=== PATIENT | female | born 1965 | race Caucasian/White ===

== ENCOUNTER 2017-04-23 10:45 | Emergency (ER) | payer OTHER ==
[~2017-04-23] VITALS: Ht 154.9 cm; Wt 65.8 kg
[~2017-04-23 10:45] MED LIST: ATENOLOL25 MG PO; BIRTH CONTROL1 EAC1 PO; CLARITIN10 MG PO; LEVOTHROID0.025 MG PO; LISINOPRIL20 MG PO; NAPROSYN500 MG PO; PRILOSEC20 M1 PO; TRAMADOL HCL50 MG PO; ZITHROMAX Z PA250 MG PO
[2017-04-23] MEDS ORDERED: VITAMIN D1000 IU PO (10:54)
[2017-04-23] MEDS ORDERED: Motrin,Rufen800 MG PO (13:12)
== END 2017-04-23 13:35 | disposition home or self-care (01) ==
LOC: ED 10:45
DX: S33.5XXA Sprain of ligaments of lumbar spine, initial encounter (principal); F17.200 Nicotine dependence, unspecified, uncomplicated; Z79.899 Other long term (current) drug therapy; Z91.013 Allergy to seafood; Z88.1 Allergy status to other antibiotic agents; W20.8XXA Other cause of strike by thrown, projected or falling object, initial encounter; Y93.89 Activity, other specified; Y92.89 Other specified places as the place of occurrence of the external cause; Y99.8 Other external cause status

== ENCOUNTER → 2017-05-09 | Outpatient (CLI) | payer OTHER ==
[~2017-05-09] MED LIST changes: +Motrin,Rufen800 MG PO; +VITAMIN D1000 IU PO
== END | disposition home or self-care (01) ==
LOC: RAD 02:12
DX: M54.2 Cervicalgia (principal); M25.552 Pain in left hip; Z91.81 History of falling; Z87.828 Personal history of other (healed) physical injury and trauma

== ENCOUNTER → 2018-03-23 | Outpatient (CLI) | payer OTHER ==
[2018-03-24 08:11] LABS: RHEUMATOID ARTHRITIS FACTOR <10.0 IU/mL (0.0-13.9)
[2018-03-25 00:03] LABS: CCP ANTIBODIES IGG/IGA 4 units (0-19)
== END | disposition home or self-care (01) ==
LOC: LAB 02:37
PROVIDERS: Chiropractor Orthopedic
DX: M25.50 Pain in unspecified joint (principal)

== ENCOUNTER 2018-10-09 17:15 | Emergency (ER) | payer OTHER ==
[~2018-10-09] VITALS: Ht 160 cm; Wt 58.1 kg
[2018-10-09] MEDS ORDERED: ACULAR 0.5%3 ML OPH (17:37)
[2018-10-09] MEDS ORDERED: TOBRAMYCIN 5 ML5 M1 OPH (17:37)
== END 2018-10-09 17:50 | disposition home or self-care (01) ==
LOC: ED 17:15
DX: S05.02XA Injury of conjunctiva and corneal abrasion without foreign body, left eye, initial encounter (principal); Z88.1 Allergy status to other antibiotic agents; Z91.041 Radiographic dye allergy status; Z91.013 Allergy to seafood; Z79.899 Other long term (current) drug therapy; X58.XXXA Exposure to other specified factors, initial encounter; Y93.89 Activity, other specified; Y92.89 Other specified places as the place of occurrence of the external cause; Y99.8 Other external cause status

== ENCOUNTER 2018-10-23 14:30 | Emergency (ER) | payer OTHER ==
[~2018-10-23] VITALS: Ht 154.9 cm; Wt 58.1 kg
[~2018-10-23 14:30] MED LIST changes: +ACULAR 0.5%3 ML OPH; +TOBRAMYCIN 5 ML5 M1 OPH
[2018-10-23] MEDS ORDERED: NAPROSYN500 MG PO (15:02)
[2018-10-23] MEDS ORDERED: CHLORZOXAZONE500 M2 PO (15:02)
== END 2018-10-23 16:45 | disposition home or self-care (01) ==
LOC: ED 14:30
DX: M54.41 Lumbago with sciatica, right side (principal); R03.0 Elevated blood-pressure reading, without diagnosis of hypertension; F17.200 Nicotine dependence, unspecified, uncomplicated; Z88.1 Allergy status to other antibiotic agents; Z91.041 Radiographic dye allergy status; Z91.013 Allergy to seafood; Z79.899 Other long term (current) drug therapy

== ENCOUNTER 2019-08-01 11:59 | Emergency (ER) | payer OTHER ==
[~2019-08-01] VITALS: Ht 154.9 cm; Wt 61.2 kg
[~2019-08-01 11:59] MED LIST changes: +CHLORZOXAZONE500 M2 PO
== END 2019-08-01 14:12 | disposition home or self-care (01) ==
LOC: ED 11:59
DX: S86.911A Strain of unspecified muscle(s) and tendon(s) at lower leg level, right leg, initial encounter (principal); Z88.1 Allergy status to other antibiotic agents; Z91.013 Allergy to seafood; Z79.899 Other long term (current) drug therapy; X58.XXXA Exposure to other specified factors, initial encounter; Y93.89 Activity, other specified; Y92.89 Other specified places as the place of occurrence of the external cause; Y99.8 Other external cause status

== ENCOUNTER → 2019-11-25 | Outpatient (CLI) | payer OTHER | END | disposition home or self-care (01) | LOC: MAMMO 01:41 | DX: Z12.31 Encounter for screening mammogram for malignant neoplasm of breast (principal) ==

== ENCOUNTER → 2020-01-07 | Day surgery (SDC) | payer OTHER ==
[~2020-01-07] VITALS: Ht 154.9 cm; Wt 61.2 kg
[~2020-01-07] MED LIST changes: +ALPRAZOLAM0.25 M2 PO; +AMLODIPINE BESY10 MG PO; +LO LOESTRIN FE1 EACH PO; +Synthroid,Levo25 MCG PO; -VITAMIN D1000 IU PO; +VITAMIN D22000 UNIT PO; +VITAMIN D32000 UNI1 PO
[2020-01-07 12:16] VITALS: BP 141/84
[2020-01-07 13:23] VITALS: BP 110/74
[2020-01-07 13:36] VITALS: BP 102/78
[2020-01-07 13:49] VITALS: BP 104/74
== END | disposition home or self-care (01) ==
LOC: SDC 01-04 08:45
DX: Z12.11 Encounter for screening for malignant neoplasm of colon (principal); I10 Essential (primary) hypertension; E03.9 Hypothyroidism, unspecified; F41.9 Anxiety disorder, unspecified; F32.9 Major depressive disorder, single episode, unspecified; Z87.891 Personal history of nicotine dependence; Z79.899 Other long term (current) drug therapy; Z83.3 Family history of diabetes mellitus; Z82.49 Family history of ischemic heart disease and other diseases of the circulatory system

== ENCOUNTER 2020-06-10 08:01 | Emergency (ER) | payer BC ==
[~2020-06-10] VITALS: Ht 154.9 cm; Wt 63.5 kg
[2020-06-10] MEDS ORDERED: TYLENOL325 M1 PO (09:09)
[2020-06-10] MEDS ORDERED: NAPROXEN250 MG PO (09:09)
== END 2020-06-10 09:18 | disposition home or self-care (01) ==
LOC: ED 08:01
DX: S52.121A Displaced fracture of head of right radius, initial encounter for closed fracture (principal); I10 Essential (primary) hypertension; F41.9 Anxiety disorder, unspecified; F17.200 Nicotine dependence, unspecified, uncomplicated; Z88.8 Allergy status to other drugs, medicaments and biological substances; Z91.013 Allergy to seafood; Z79.899 Other long term (current) drug therapy; W10.8XXA Fall (on) (from) other stairs and steps, initial encounter; Y93.89 Activity, other specified; Y92.89 Other specified places as the place of occurrence of the external cause; Y99.8 Other external cause status

== ENCOUNTER → 2021-01-18 | Outpatient (CLI) | payer BC ==
[~2021-01-18] MED LIST changes: +NAPROXEN250 MG PO; +TYLENOL325 M1 PO
== END | disposition home or self-care (01) ==
LOC: MAMMO 00:44
PROVIDERS: ATTEND Internal Medicine
DX: Z12.31 Encounter for screening mammogram for malignant neoplasm of breast (principal); N64.89 Other specified disorders of breast

== ENCOUNTER 2021-05-10 13:06 | Emergency (ER) | payer BC ==
[~2021-05-10] VITALS: Wt 63.5 kg
== END 2021-05-10 15:07 | disposition left against medical advice (07) ==
LOC: ED 13:06
DX: M54.9 Dorsalgia, unspecified (principal); Z53.21 Procedure and treatment not carried out due to patient leaving prior to being seen by health care provider

== ENCOUNTER → 2021-05-21 | Outpatient (CLI) | payer BC ==
[2021-05-21 10:00] LABS: BASO % 0.5 % (0.0-1.0); EOS % 0.1 % (1.0-4.0); HEMATOCRIT 45.3 % (37.0-47.0); LYMPH # 2.9 10*3/uL (1.3-4.4); LYMPH % 33.4 % (27.0-41.0); MEAN CELL VOLUME 98.1 fl (81.0-99.0); MEAN CORPUSCULAR HGB 33.3 pg (27.0-31.0); MEAN PLATELET VOLUME 10.1 fl (9.6-12.3); MONO # 0.7 10*3/uL (0.1-1.0); MONO % 8.5 % (3.0-9.0); NEUT % 56.7 % (47.0-73.0); PLATELET COUNT AUTOMATED 330 10*3/uL (130-400); RED BLOOD COUNT 4.62 10*6/uL (4.10-5.10); RED CELL DISTRI WIDTH 12.4 % (0-14.5); WHITE BLOOD COUNT 8.8 10*3/uL (4.8-10.8)
[2021-05-21 10:31] LABS: ALBUMIN 3.6 gm/dl (3.1-4.5); BUN 10 mg/dl (7-24); CHLORIDE 107 mmol/L (98-107); POTASSIUM 3.8 mmol/L (3.5-5.1); SODIUM 138 mmol/L (136-145)
[2021-05-21 10:44] LABS: ALKALINE PHOSPHATASE 65 U/L (45-117); CREATININE 0.48 mg/dL (0.55-1.02); FREE T4 1.01 ng/dl (0.76-1.46); SGOT/AST 14 IU/L (3-35); SGPT/ALT 28 U/L (12-78); TOTAL PROTEIN 7.9 gm/dL (6.4-8.2)
== END | disposition home or self-care (01) ==
LOC: LAB 09:26
PROVIDERS: ATTEND Internal Medicine
DX: R00.0 Tachycardia, unspecified (principal); M54.40 Lumbago with sciatica, unspecified side; R21 Rash and other nonspecific skin eruption

== ENCOUNTER → 2022-04-24 | Outpatient (CLI) | payer BC | END | disposition home or self-care (01) | LOC: US 02:14 | PROVIDERS: ATTEND Internal Medicine | DX: N83.202 Unspecified ovarian cyst, left side (principal); N83.201 Unspecified ovarian cyst, right side; D25.9 Leiomyoma of uterus, unspecified ==

== ENCOUNTER → 2022-07-01 | Day surgery (SDC) | payer BC ==
[~2022-07-01] VITALS: Ht 160 cm; Wt 66.7 kg
[~2022-07-01] MED LIST changes: +CARAFATE1 G1 PO; +PROTONIX40 MG PO
[2022-07-01 08:10] VITALS: BP 160/84
[2022-07-01 08:52] VITALS: BP 123/73
[2022-07-01 09:05] VITALS: BP 146/77
[2022-07-01 09:22] VITALS: BP 141/73
== END | disposition home or self-care (01) ==
LOC: SDC 06-27 10:15
PROVIDERS: ATTEND Surgery
DX: Z12.11 Encounter for screening for malignant neoplasm of colon (principal); K21.9 Gastro-esophageal reflux disease without esophagitis; K29.50 Unspecified chronic gastritis without bleeding; K57.30 Diverticulosis of large intestine without perforation or abscess without bleeding; I10 Essential (primary) hypertension; E78.00 Pure hypercholesterolemia, unspecified; F17.210 Nicotine dependence, cigarettes, uncomplicated; F41.9 Anxiety disorder, unspecified; Z79.899 Other long term (current) drug therapy; Z98.890 Other specified postprocedural states; Z88.1 Allergy status to other antibiotic agents; Z88.8 Allergy status to other drugs, medicaments and biological substances

== ENCOUNTER 2022-08-31 12:44 | Emergency (ER) | payer BC ==
[~2022-08-31] VITALS: Ht 165.1 cm; Wt 60.8 kg
[2022-08-31] MEDS ORDERED: LIDODERM1 EACH T (14:54)
[2022-08-31] MEDS ORDERED: CYCLOBENZAPRINE10 MG PO (14:54)
== END 2022-08-31 14:56 | disposition home or self-care (01) ==
LOC: ED 12:44
DX: S49.91XA Unspecified injury of right shoulder and upper arm, initial encounter (principal); Z88.1 Allergy status to other antibiotic agents; Z91.013 Allergy to seafood; Z79.899 Other long term (current) drug therapy; Z90.89 Acquired absence of other organs; W18.39XA Other fall on same level, initial encounter; Y93.89 Activity, other specified; Y92.89 Other specified places as the place of occurrence of the external cause; Y99.8 Other external cause status

== ENCOUNTER 2023-06-27 16:10 | Emergency (ER) | payer BC ==
[~2023-06-27] VITALS: Ht 160 cm; Wt 61.2 kg
[~2023-06-27 16:10] MED LIST changes: +CYCLOBENZAPRINE10 MG PO; +LIDODERM1 EACH T
[2023-06-27] MEDS ORDERED: MELOXICAM15 MG PO (17:00)
[2023-06-27] MEDS ORDERED: ZANAFLEX4 MG PO (17:00)
== END 2023-06-27 17:40 | disposition home or self-care (01) ==
LOC: ED 16:10
DX: S39.012A Strain of muscle, fascia and tendon of lower back, initial encounter (principal); I10 Essential (primary) hypertension; F41.9 Anxiety disorder, unspecified; Z88.8 Allergy status to other drugs, medicaments and biological substances; Z86.16 Personal history of COVID-19; Z91.041 Radiographic dye allergy status; Z91.013 Allergy to seafood; Z98.890 Other specified postprocedural states; X50.1XXA Overexertion from prolonged static or awkward postures, initial encounter; Y93.89 Activity, other specified; Y92.89 Other specified places as the place of occurrence of the external cause; Y99.0 Civilian activity done for income or pay

== ENCOUNTER → 2024-01-27 | Outpatient (CLI) | payer BC ==
[~2024-01-27] MED LIST changes: +MELOXICAM15 MG PO; +ZANAFLEX4 MG PO
[2024-01-27 08:46] LABS: BASO # 0.1 10*3/uL (0.0-0.1); BASO % 0.9 % (0.0-1.0); EOS # 0.1 10*3/uL (0.0-0.4); EOS % 0.6 % (1.0-4.0); HEMATOCRIT 47.2 % (37.0-47.0); LYMPH # 3.2 10*3/uL (1.3-4.4); LYMPH % 40.2 % (27.0-41.0); MEAN CELL VOLUME 101.9 fl (81.0-99.0); MEAN CORPUSCULAR HGB 33.9 pg (27.0-31.0); MEAN CORPUSCULAR HGB CONC 33.3 g/dl (33.0-37.0); MEAN PLATELET VOLUME 10.2 fl (9.6-12.3); MONO # 0.7 10*3/uL (0.1-1.0); MONO % 8.8 % (3.0-9.0); NEUT # 3.9 10*3/uL (2.3-7.9); NEUT % 49.2 % (47.0-73.0); PLATELET COUNT AUTOMATED 227 10*3/uL (130-400); RED BLOOD COUNT 4.63 10*6/uL (4.10-5.10); RED CELL DISTRI WIDTH 12.7 % (0-14.5)
[2024-01-27 09:30] LABS: VITAMIN D, 25-HYDROXY 49.4 ng/mL (30-100)
== END | disposition home or self-care (01) ==
LOC: LAB 01:45
PROVIDERS: ATTEND Chiropractor Orthopedic
DX: M45.A Non-radiographic axial spondyloarthritis (principal)

== ENCOUNTER → 2024-02-24 | Outpatient (CLI) | payer BC ==
[2024-02-24 08:21] LABS: ALKALINE PHOSPHATASE 82 U/L (46-116); BUN 8 mg/dl (9-23); CHLORIDE 104 mmol/L (98-107); SGPT/ALT 15 U/L (5-49); TOTAL PROTEIN 7.9 gm/dL (6.0-8.0)
[2024-02-25 12:08] LABS: ANTI-DSDNA ANTIBODIES 2 IU/mL (0-9)
[2024-02-26 15:07] LABS: ANTIHISTONE ANTIBODIES 1.2 Units (0.0-0.9)
== END | disposition home or self-care (01) ==
LOC: LAB 01:42
PROVIDERS: ATTEND Internal Medicine
DX: R76.8 Other specified abnormal immunological findings in serum (principal)

== ENCOUNTER → 2024-03-12 | Outpatient (CLI) | payer BC | END | disposition home or self-care (01) | LOC: RAD 02:05 | PROVIDERS: ATTEND Internal Medicine Rheumatology | DX: S42.031A Displaced fracture of lateral end of right clavicle, initial encounter for closed fracture (principal); M77.32 Calcaneal spur, left foot; M16.0 Bilateral primary osteoarthritis of hip; M19.042 Primary osteoarthritis, left hand; M19.041 Primary osteoarthritis, right hand; M54.50 Low back pain, unspecified; M25.562 Pain in left knee; M25.561 Pain in right knee; M79.89 Other specified soft tissue disorders; X58.XXXA Exposure to other specified factors, initial encounter; Y93.89 Activity, other specified; Y92.89 Other specified places as the place of occurrence of the external cause; Y99.8 Other external cause status ==

== ENCOUNTER → 2024-04-16 | Outpatient (CLI) | payer BC ==
[~2024-04-16] MED LIST changes: +PREDNISONE50 MG PO
[2024-04-16 11:04] LABS: BASO # 0.1 10*3/uL (0.0-0.1); BASO % 0.9 % (0.0-1.0); EOS # 0.3 10*3/uL (0.0-0.4); EOS % 1.8 % (1.0-4.0); HEMATOCRIT 44.8 % (37.0-47.0); LYMPH # 1.4 10*3/uL (1.3-4.4); MEAN CELL VOLUME 99.8 fl (81.0-99.0); MEAN CORPUSCULAR HGB 34.7 pg (27.0-31.0); MEAN CORPUSCULAR HGB CONC 34.8 g/dl (33.0-37.0); MEAN PLATELET VOLUME 10.1 fl (9.6-12.3); MONO # 0.8 10*3/uL (0.1-1.0); MONO % 5.6 % (3.0-9.0); NEUT % 81.3 % (47.0-73.0); PLATELET COUNT AUTOMATED 188 10*3/uL (130-400); RED BLOOD COUNT 4.49 10*6/uL (4.10-5.10); RED CELL DISTRI WIDTH 13.3 % (0-14.5); WHITE BLOOD COUNT 13.5 10*3/uL (4.8-10.8)
[2024-04-16 11:28] LABS: ALKALINE PHOSPHATASE 71 U/L (46-116); BUN 8 mg/dl (9-23); CHLORIDE 107 mmol/L (98-107); FREE T4 1.34 ng/dl (0.89-1.76); POTASSIUM 3.9 mmol/L (3.4-5.1); SGPT/ALT 19 U/L (5-49); TOTAL PROTEIN 7.5 gm/dL (6.0-8.0)
== END | disposition home or self-care (01) ==
LOC: LAB 10:50
PROVIDERS: ATTEND Internal Medicine
DX: I10 Essential (primary) hypertension (principal)

== ENCOUNTER 2024-04-25 08:23 | Emergency (ER) | payer BC ==
[~2024-04-25] VITALS: Ht 154.9 cm; Wt 62.6 kg
[~2024-04-25 08:23] MED LIST changes: -PREDNISONE50 MG PO
[2024-04-25] MEDS ORDERED: Dexamethasone Sodium Phospha 20 MG/5 ML VIAL IV ONE (09:00)
[2024-04-25] MEDS ORDERED: FAMOTIDINE 50 ML IV ONE (09:15)
[2024-04-25 09:38] LABS: BASO # 0.1 10*3/uL (0.0-0.1); BASO % 1.3 % (0.0-1.0); EOS # 0.8 10*3/uL (0.0-0.4); EOS % 7.2 % (1.0-4.0); HEMATOCRIT 50.1 % (37.0-47.0); LYMPH # 1.7 10*3/uL (1.3-4.4); LYMPH % 16.3 % (27.0-41.0); MEAN CELL VOLUME 100.8 fl (81.0-99.0); MEAN CORPUSCULAR HGB 34.6 pg (27.0-31.0); MEAN CORPUSCULAR HGB CONC 34.3 g/dl (33.0-37.0); MEAN PLATELET VOLUME 10.2 fl (9.6-12.3); MONO # 0.7 10*3/uL (0.1-1.0); MONO % 6.6 % (3.0-9.0); NEUT # 7.1 10*3/uL (2.3-7.9); PLATELET COUNT AUTOMATED 202 10*3/uL (130-400); RED BLOOD COUNT 4.97 10*6/uL (4.10-5.10); RED CELL DISTRI WIDTH 12.5 % (0-14.5); WHITE BLOOD COUNT 10.5 10*3/uL (4.8-10.8)
[2024-04-25] MEDS ORDERED: LORATADINE 10 MG TAB PO ONE (09:55)
[2024-04-25] MEDS ORDERED: TRANEXAMIC ACID IN NACL,ISO-OS 100 ML IV ONE (10:00)
[2024-04-25 10:02] LABS: BUN 7 mg/dl (9-23); CHLORIDE 103 mmol/L (98-107); POTASSIUM 3.8 mmol/L (3.4-5.1)
[2024-04-25] MEDS ORDERED: PREDNISONE50 MG PO (11:17)
== END 2024-04-25 12:34 | disposition home or self-care (01) ==
LOC: ED 08:23
PROVIDERS: Internal Medicine
DX: R21 Rash and other nonspecific skin eruption (principal); T50.2X5A Adverse effect of carbonic-anhydrase inhibitors, benzothiadiazides and other diuretics, initial encounter; I10 Essential (primary) hypertension; F41.9 Anxiety disorder, unspecified; Z91.041 Radiographic dye allergy status; Z91.013 Allergy to seafood; Z98.890 Other specified postprocedural states; Y92.89 Other specified places as the place of occurrence of the external cause

== ENCOUNTER 2024-06-08 06:22 | Emergency (ER) | payer BC ==
[~2024-06-08] VITALS: Ht 154.9 cm; Wt 61.2 kg
[~2024-06-08 06:22] MED LIST changes: +PREDNISONE50 MG PO
[2024-06-08] MEDS ORDERED: Acetaminophen/Oxycodone 5 MG/325 MG TABLET PO ONE (07:20)
[2024-06-08] MEDS ORDERED: MELOXICAM15 MG PO (08:40)
== END 2024-06-08 08:52 | disposition home or self-care (01) ==
LOC: ED 06:22
DX: M25.561 Pain in right knee (principal); Z91.041 Radiographic dye allergy status; Z91.013 Allergy to seafood; Z79.899 Other long term (current) drug therapy

== ENCOUNTER → 2024-08-03 | Outpatient (CLI) | payer BC | END | disposition home or self-care (01) | LOC: MAMMO 13:37 | PROVIDERS: ATTEND Internal Medicine | DX: Z12.31 Encounter for screening mammogram for malignant neoplasm of breast (principal); R92.30 Dense breasts, unspecified; N64.89 Other specified disorders of breast ==

== ENCOUNTER → 2025-08-05 | Outpatient (CLI) | payer OTHER | END | disposition home or self-care (01) | LOC: RAD 10:48 | PROVIDERS: ATTEND Internal Medicine | DX: M47.817 Spondylosis without myelopathy or radiculopathy, lumbosacral region (principal); M48.07 Spinal stenosis, lumbosacral region; I70.0 Atherosclerosis of aorta; M54.9 Dorsalgia, unspecified ==

== ENCOUNTER → 2025-09-13 | Outpatient (CLI) | payer OTHER | END | disposition home or self-care (01) | LOC: MAMMO 15:11 | PROVIDERS: ATTEND Internal Medicine | DX: Z12.31 Encounter for screening mammogram for malignant neoplasm of breast (principal) ==

== ENCOUNTER → 2025-10-26 | Outpatient (CLI) | payer OTHER | END | disposition home or self-care (01) | LOC: US 01:20 | PROVIDERS: ATTEND Internal Medicine | DX: N63.25 Unspecified lump in the left breast, overlapping quadrants (principal) ==